=== PATIENT | male | born 1995 | race Caucasian/White ===

== ENCOUNTER 2020-04-09 15:16 | Emergency (ER) | payer SELFPAY ==
[2020-04-09] MEDS ORDERED: Nitroglycerin 0.4 MG TAB (25 Tab Bottle) ONE (16:16)
== END 2020-04-09 17:53 | disposition short-term general hospital (02) ==
LOC: NAV ERS 15:16
DX: T18.128A Food in esophagus causing other injury, initial encounter (principal); F32.9 Major depressive disorder, single episode, unspecified; Z79.899 Other long term (current) drug therapy
CPT/HCPCS: 96374; J1610